=== PATIENT | male | born 1960 | race Two or more races ===

== ENCOUNTER 2022-10-02 15:35 | Emergency (ER) | payer SELFPAY ==
[~2022-10-02] VITALS: Ht 172.7 cm; Wt 74.8 kg
[~2022-10-02 15:35] MED LIST: ACET500 PO; ANTIBIOTIC; CEPH500 PO; HYDR1TAB94 PO; IBU600 M1 PO; IBUP600 PO; ONDA4ODT MM; Percocet 5-3251 EACH PO; TAMS.4ER PO
[2022-10-02 16:51] LABS: BASOPHILS PERCENT AUTO 1 % (0-2); EOSINOPHILS ABSOLUTE AUTO 0.07 K/mm3 (0.00-0.68); EOSINOPHILS PERCENT AUTO 1 % (0-6); Hematocrit 40.8 % (37.0-53.0); Hemoglobin 15.3 g/dL (13.5-17.5); IMMATURE GRAN ABSOLUTE AUTO 0.15 K/mm3 (0.00-0.10); IMMATURE GRAN PERCENT AUTO 2 % (0-1); LYMPHOCYTES ABSOLUTE AUTO 0.49 K/mm3 (0.84-5.20); LYMPHOCYTES PERCENT AUTO 5 % (21-46); MONOCYTES ABSOLUTE AUTO 1.21 K/mm3 (0.16-1.47); MONOCYTES PERCENT AUTO 12 % (4-13); Mean Corpuscular HGB 30.7 pg (26.0-34.0); Mean Corpuscular HGB Conc 37.5 g/dL (31.5-36.5); Mean Corpuscular Volume 82 fL (80-100); Mean Platelet Volume 9.5 fL (9.1-12.4); NEUTROPHILS ABSOLUTE AUTO 7.73 K/mm3 (1.96-9.15); NEUTROPHILS PERCENT AUTO 79 % (41-73); Platelet Count 351 K/mm3 (150-400); RDW Coefficient Variation 12.9 % (11.7-14.2); RDW Standard Deviation 38.4 fL (35.1-46.3); Red Blood Cell Count 4.99 M/mm3 (4.30-5.90); White Blood Cell Count 9.75 K/mm3 (4.00-11.30)
[2022-10-02 16:56] LABS: Influenza B, PCR NEGATIVE (NEGATIVE); Resp Syncytial Virus, PCR NEGATIVE (NEGATIVE); SARS-Cov-2 (COVID-19) PCR, MMC NEGATIVE (NEGATIVE)
[2022-10-02 17:10] LABS: Influenza A, PCR POSITIVE (NEGATIVE)
[2022-10-02 17:11] LABS: Bilirubin, Total 0.5 mg/dL (0.1-1.0); Bun/Creatinine Ratio 11.1 (12.0-20.0); Calcium, Blood 9.1 mg/dL (8.5-10.1); Creatinine, Blood 0.81 mg/dL (0.60-1.20); Globulin, Blood 3.9 g/dL (2.2-4.0); Potassium, Blood 4.3 mmol/L (3.5-5.5); Total Protein, Blood 7.9 g/dL (6.4-8.2)
[2022-10-02] MEDS ORDERED: ONDA4ODT MM (21:49)
[2022-10-02] MEDS ORDERED: ACET500 PO (21:49)
== END 2022-10-02 22:03 | disposition home or self-care (01) ==
LOC: ER 15:35
PROVIDERS: Emergency Medicine
DX: J10.1 Influenza due to other identified influenza virus with other respiratory manifestations (principal); Z79.899 Other long term (current) drug therapy; Z20.822 Contact with and (suspected) exposure to COVID-19
CPT/HCPCS: 0241U; 36415; 80053; 85025; A9270; J1885

== ENCOUNTER 2022-10-03 08:15 | Emergency (ER) | payer SELFPAY ==
[~2022-10-03] VITALS: Ht 177.8 cm; Wt 77.1 kg
== END 2022-10-03 10:38 | disposition home or self-care (01) ==
LOC: ER 08:15
DX: J10.1 Influenza due to other identified influenza virus with other respiratory manifestations (principal); I10 Essential (primary) hypertension; Z87.891 Personal history of nicotine dependence
CPT/HCPCS: 99282

== ENCOUNTER 2024-11-21 09:28 | Emergency (ER) | payer SELFPAY ==
[~2024-11-21] VITALS: Ht 157.5 cm; Wt 81.7 kg
[2024-11-21 10:22] VITALS: BP 154/116
[2024-11-21 10:47] LABS: Source, Urine Straight Cath
[2024-11-21 10:50] LABS: Appearance, Urine Hazy (Clear); Bilirubin, Urine Neg (Neg); Blood, Urine 5+ (Neg); Color, Urine Yellow (P-Yellow); Glucose Qualitative, Urine Neg (Neg); Ketones, Urine Neg (Neg); Leukocyte Esterase, Urine 3+ (Neg); Nitrite, Urine Pos (Neg); Protein, Urine 2+ (Neg); Urobilinogen, Urine NORM (Normal)
[2024-11-21 11:00] LABS: Bacteria Mod /hpf; Red Blood Cells, Urine 50-100 /hpf (0-2); Squamous Epithelial Cells Not Seen /hpf (Few); White Blood Cells, Urine 50-100 /hpf (0-5)
[2024-11-21] MEDS ORDERED: Cephalexin Monohydrate 500 MG Cap PO ONE (11:40)
[2024-11-21] MEDS ORDERED: Tamsulosin HCl 0.4 MG Cap PO ONE (11:45)
[2024-11-21] MEDS ORDERED: CEPH500 PO (11:50)
== END 2024-11-21 11:54 | disposition home or self-care (01) ==
LOC: ER 09:28
PROVIDERS: Student in an Organized Health Care Education/Training Program
DX: N39.0 Urinary tract infection, site not specified (principal); Z79.899 Other long term (current) drug therapy
CPT/HCPCS: 51701; 51798; 81001; 87077; 87086; 87186; 99284-25; A9270

== ENCOUNTER 2024-11-29 02:46 | Emergency (ER) | payer SELFPAY ==
[~2024-11-29] VITALS: Ht 172.7 cm; Wt 79.4 kg
[2024-11-29 02:55] VITALS: BP 130/90
[2024-11-29 03:41] LABS: Source, Urine Clean Catch
[2024-11-29 03:48] LABS: Bilirubin, Urine Neg (Neg); Blood, Urine Neg (Neg); Glucose Qualitative, Urine Neg (Neg); Ketones, Urine Neg (Neg); Leukocyte Esterase, Urine 2+ (Neg); Nitrite, Urine Neg (Neg); Protein, Urine Neg (Neg); Urobilinogen, Urine NORM (Normal)
[2024-11-29 03:54] LABS: Appearance, Urine Clear (Clear); Color, Urine Yellow (P-Yellow)
[2024-11-29 03:55] LABS: Bacteria Mod /hpf; Red Blood Cells, Urine Not Seen /hpf (0-2); Squamous Epithelial Cells Not Seen /hpf (Few)
[2024-11-29 04:16] LABS: Albumin, Blood 3.8 g/dL (3.4-5.0); Albumin/Globulin Ratio 1.1 (0.8-1.8); Bilirubin, Total 0.3 mg/dL (0.1-1.0); Bun/Creatinine Ratio 17.3 (12.0-20.0); Calcium, Blood 9.2 mg/dL (8.5-10.1); Creatinine, Blood 0.75 mg/dL (0.60-1.20); Globulin, Blood 3.5 g/dL (2.2-4.0); Total Protein, Blood 7.3 g/dL (6.4-8.2)
[2024-11-29 04:55] LABS: BASOPHILS PERCENT AUTO 1 % (0-2); EOSINOPHILS PERCENT AUTO 1 % (0-6); Hematocrit 38.3 % (37.0-53.0); IMMATURE GRAN ABSOLUTE AUTO 0.05 K/mm3 (0.00-0.10); IMMATURE GRAN PERCENT AUTO 1 % (0-1); LYMPHOCYTES PERCENT AUTO 29 % (21-46); MONOCYTES ABSOLUTE AUTO 0.57 K/mm3 (0.16-1.47); MONOCYTES PERCENT AUTO 8 % (4-13); Mean Corpuscular Volume 82 fL (80-100); Mean Platelet Volume 10.5 fL (9.1-12.4); NEUTROPHILS ABSOLUTE AUTO 4.19 K/mm3 (1.96-9.15); NEUTROPHILS PERCENT AUTO 60 % (41-73); Platelet Count 331 K/mm3 (150-400); RDW Coefficient Variation 13.2 % (11.7-14.2); RDW Standard Deviation 39.2 fL (35.1-46.3); White Blood Cell Count 7.01 K/mm3 (4.00-11.30)
[2024-11-29 04:58] LABS: Hemoglobin 14.4 g/dL (13.5-17.5); Mean Corpuscular HGB 30.6 pg (26.0-34.0); Mean Corpuscular HGB Conc 37.6 g/dL (31.5-36.5)
[2024-12-03] MEDS ORDERED: CEFP200 PO (09:21)
[2024-12-12] MEDS ORDERED: TAMS.4ER PO (06:22)
== END 2024-11-29 05:38 | disposition home or self-care (01) ==
LOC: ER 02:46
PROVIDERS: Student in an Organized Health Care Education/Training Program
DX: R33.9 Retention of urine, unspecified (principal); Z87.438 Personal history of other diseases of male genital organs
CPT/HCPCS: 51702; 51798; 80053; 81001; 85025; 87077; 87086; 87186; 99283-25

== ENCOUNTER 2024-12-02 03:45 | Emergency (ER) | payer SELFPAY ==
[~2024-12-02] VITALS: Ht 162.6 cm; Wt 75.0 kg
[2024-12-02 04:26] VITALS: BP 132/67
[2024-12-03] MEDS ORDERED: CEFP200 PO (09:21)
== END 2024-12-02 04:38 | disposition home or self-care (01) ==
LOC: ER 03:45
DX: Z46.6 Encounter for fitting and adjustment of urinary device (principal)
CPT/HCPCS: 99283

== ENCOUNTER 2024-12-08 05:14 | Emergency (ER) | payer SELFPAY ==
[~2024-12-08] VITALS: Ht 167.6 cm; Wt 83.9 kg
[~2024-12-08 05:14] MED LIST changes: +CEFP200 PO
[2024-12-08] MEDS ORDERED: Trimethoprim/Sulfamethoxazole DS Tab PO ONE (06:30)
[2024-12-08] MEDS ORDERED: SULTRIDS PO (06:34)
[2024-12-08 06:47] LABS: Source, Urine Clean Catch
[2024-12-08 06:55] LABS: Appearance, Urine Clear (Clear); Bilirubin, Urine Neg (Neg); Blood, Urine 2+ (Neg); Color, Urine Yellow (P-Yellow); Glucose Qualitative, Urine Neg (Neg); Ketones, Urine Neg (Neg); Leukocyte Esterase, Urine Neg (Neg); Nitrite, Urine Neg (Neg); Protein, Urine Neg (Neg); Specific Gravity, Urine 1.015 (1.003-1.022); Urobilinogen, Urine NORM (Normal)
[2024-12-08 07:12] LABS: Bacteria Not Seen /hpf; Squamous Epithelial Cells Rare /hpf (Few); White Blood Cells, Urine 0-2 /hpf (0-5)
[2024-12-08 07:29] VITALS: BP 132/75
[2024-12-12] MEDS ORDERED: TAMS.4ER PO (06:22)
== END 2024-12-08 07:29 | disposition home or self-care (01) ==
LOC: ER 05:14
PROVIDERS: Student in an Organized Health Care Education/Training Program
DX: N39.0 Urinary tract infection, site not specified (principal); B96.4 Proteus (mirabilis) (morganii) as the cause of diseases classified elsewhere; Z16.19 Resistance to other specified beta lactam antibiotics; Z16.29 Resistance to other single specified antibiotic; Z16.11 Resistance to penicillins; R33.9 Retention of urine, unspecified
CPT/HCPCS: 51702; 51798; 81001; 99283-25; A9270

== ENCOUNTER → 2024-12-12 | Emergency (ER) | payer SELFPAY ==
[~2024-12-12] VITALS: Ht 167.6 cm; Wt 81.7 kg
[~2024-12-12] MED LIST changes: +SULTRIDS PO
[2024-12-12 06:06] VITALS: BP 148/81
== END ==
LOC: ER 05:54
DX: Z46.6 Encounter for fitting and adjustment of urinary device (principal); Z87.438 Personal history of other diseases of male genital organs
CPT/HCPCS: 99282

== ENCOUNTER 2025-01-27 04:35 | Emergency (ER) | payer SELFPAY ==
[~2025-01-27] VITALS: Ht 167.6 cm; Wt 77.1 kg
[2025-01-27 04:47] VITALS: BP 152/87
[2025-01-27 05:11] LABS: Source, Urine Foley catheter
[2025-01-27 05:19] LABS: Appearance, Urine Clear (Clear); Bilirubin, Urine Neg (Neg); Blood, Urine 1+ (Neg); Color, Urine Yellow (P-Yellow); Glucose Qualitative, Urine Neg (Neg); Ketones, Urine Neg (Neg); Leukocyte Esterase, Urine 3+ (Neg); Nitrite, Urine Neg (Neg); Protein, Urine Neg (Neg); Urobilinogen, Urine NORM (Normal); pH, Urine 6.5 (5.0-8.0)
[2025-01-27 05:41] LABS: Bacteria Few /hpf; Red Blood Cells, Urine 0-2 /hpf (0-2); Squamous Epithelial Cells Not Seen /hpf (Few)
[2025-01-27] MEDS ORDERED: CEPH500 PO (06:28)
[2025-01-27] MEDS ORDERED: TAMS.4ER PO (06:28)
== END 2025-01-27 06:44 | disposition home or self-care (01) ==
LOC: ER 04:35
PROVIDERS: Emergency Medicine
DX: T83.091A Other mechanical complication of indwelling urethral catheter, initial encounter (principal); R33.9 Retention of urine, unspecified; N39.0 Urinary tract infection, site not specified; Z79.2 Long term (current) use of antibiotics; Z79.899 Other long term (current) drug therapy
CPT/HCPCS: 51702; 51798; 81001; 87077; 87086; 87186; 99283-25

== ENCOUNTER 2025-02-01 03:38 | Emergency (ER) | payer SELFPAY ==
[~2025-02-01] VITALS: Ht 160 cm; Wt 72.6 kg
== END 2025-02-01 04:16 | disposition home or self-care (01) ==
LOC: ER 03:38
DX: Z46.6 Encounter for fitting and adjustment of urinary device (principal); N40.1 Benign prostatic hyperplasia with lower urinary tract symptoms; R33.8 Other retention of urine
CPT/HCPCS: 99282

== ENCOUNTER 2025-03-01 00:50 | Emergency (ER) | payer SELFPAY ==
[~2025-03-01] VITALS: Ht 177.8 cm; Wt 73.5 kg
[2025-03-01 02:02] VITALS: BP 137/109
[2025-03-01] MEDS ORDERED: Lidocaine 2% Jelly Uro-Jet UR ONE (02:05)
[2025-03-01 03:10] LABS: Source, Urine Foley catheter
[2025-03-01 03:12] LABS: Bilirubin, Urine Neg (Neg); Blood, Urine 3+ (Neg); Glucose Qualitative, Urine Neg (Neg); Ketones, Urine Neg (Neg); Leukocyte Esterase, Urine 3+ (Neg); Nitrite, Urine Neg (Neg); Protein, Urine Neg (Neg); Urobilinogen, Urine NORM (Normal)
[2025-03-01 03:29] LABS: Appearance, Urine Clear (Clear); Color, Urine Pale Yellow (P-Yellow); Red Blood Cells, Urine 0-2 /hpf (0-2)
[2025-03-01 03:30] LABS: Bacteria Few /hpf; Squamous Epithelial Cells Not Seen /hpf (Few)
[2025-03-01] MEDS ORDERED: Cefuroxime Axetil 250 MG Tab PO ONE (03:55)
[2025-03-01] MEDS ORDERED: CEFUROXIME SOD1.5 GM PO (03:57)
== END 2025-03-01 04:30 | disposition home or self-care (01) ==
LOC: ER 00:50
PROVIDERS: Emergency Medicine
DX: N39.0 Urinary tract infection, site not specified (principal); N40.1 Benign prostatic hyperplasia with lower urinary tract symptoms; R33.8 Other retention of urine; Z79.899 Other long term (current) drug therapy
CPT/HCPCS: 51702; 51798; 81001; 87077; 87086; 87186; 99283-25; A9270

== ENCOUNTER 2025-03-10 02:23 | Emergency (ER) | payer SELFPAY ==
[~2025-03-10] VITALS: Ht 167.6 cm; Wt 65.8 kg
[~2025-03-10 02:23] MED LIST changes: +CEFUROXIME SOD1.5 GM PO
[2025-03-10 04:24] VITALS: BP 144/81
== END 2025-03-10 04:25 | disposition home or self-care (01) ==
LOC: ER 02:23
DX: Z46.6 Encounter for fitting and adjustment of urinary device (principal); Z79.899 Other long term (current) drug therapy
CPT/HCPCS: 51798; 99283-25

== ENCOUNTER 2025-05-17 03:10 | Emergency (ER) | payer SELFPAY ==
[~2025-05-17] VITALS: Ht 167.6 cm; Wt 67.1 kg
[2025-05-17] MEDS ORDERED: Lidocaine 2% Jelly Uro-Jet UR ONE (03:55)
[2025-05-17 04:09] VITALS: BP 142/80
[2025-05-17 04:40] LABS: Source, Urine Foley catheter
[2025-05-17 04:47] LABS: Bilirubin, Urine Neg (Neg); Glucose Qualitative, Urine Neg (Neg); Ketones, Urine Neg (Neg); Leukocyte Esterase, Urine 3+ (Neg); Protein, Urine 2+ (Neg); Specific Gravity, Urine 1.005 (1.003-1.022); Urobilinogen, Urine NORM (Normal)
[2025-05-17 04:53] LABS: Color, Urine Red (P-Yellow)
[2025-05-17 04:54] LABS: Red Blood Cells, Urine TNTC /hpf (0-2)
[2025-05-17] MEDS ORDERED: CEPH500 PO (06:05)
== END 2025-05-17 06:18 | disposition home or self-care (01) ==
LOC: ER 03:10
PROVIDERS: Emergency Medicine
DX: N40.1 Benign prostatic hyperplasia with lower urinary tract symptoms (principal); R33.8 Other retention of urine; N39.0 Urinary tract infection, site not specified; Z79.899 Other long term (current) drug therapy
CPT/HCPCS: 51702; 81001; 87077; 87086; 87186; 99283

== ENCOUNTER 2025-05-23 21:13 | Emergency (ER) | payer SELFPAY ==
[~2025-05-23] VITALS: Ht 165.1 cm; Wt 77.1 kg
[2025-05-23 21:24] VITALS: BP 153/93
[2025-05-23] MEDS ORDERED: Flomax0.4 MG PO (21:45)
[2025-05-23] MEDS ORDERED: Miralax17 GM PO (21:45)
== END 2025-05-23 21:58 | disposition home or self-care (01) ==
LOC: ER 21:13
DX: Z46.6 Encounter for fitting and adjustment of urinary device (principal); R33.9 Retention of urine, unspecified; Z79.899 Other long term (current) drug therapy
CPT/HCPCS: 99283

== ENCOUNTER 2025-05-24 03:15 | Emergency (ER) | payer SELFPAY ==
[~2025-05-24] VITALS: Ht 162.6 cm; Wt 70.0 kg
[~2025-05-24 03:15] MED LIST changes: +Flomax0.4 MG PO; +Miralax17 GM PO
[2025-05-24 03:28] VITALS: BP 140/76
[2025-05-24] MEDS ORDERED: Lidocaine 2% Jelly Uro-Jet UR ONE (03:40)
== END 2025-05-24 04:20 | disposition home or self-care (01) ==
LOC: ER 03:15
DX: R33.9 Retention of urine, unspecified (principal)
CPT/HCPCS: 51702; 51798; 99283-25

== ENCOUNTER 2025-05-26 21:32 | Emergency (ER) | payer SELFPAY ==
[~2025-05-26] VITALS: Ht 162.6 cm; Wt 72.6 kg
[2025-05-26 21:42] VITALS: BP 145/81
== END 2025-05-27 00:35 | disposition home or self-care (01) ==
LOC: ER 21:32
DX: Z46.6 Encounter for fitting and adjustment of urinary device (principal); N39.0 Urinary tract infection, site not specified; Z79.2 Long term (current) use of antibiotics; Z79.899 Other long term (current) drug therapy
CPT/HCPCS: 99283

== ENCOUNTER 2025-05-27 03:22 | Emergency (ER) | payer SELFPAY ==
[~2025-05-27] VITALS: Ht 170.2 cm; Wt 67.0 kg
[2025-05-27 03:34] VITALS: BP 164/89
== END 2025-05-27 03:54 | disposition home or self-care (01) ==
LOC: ER 03:22
DX: R33.9 Retention of urine, unspecified (principal)
CPT/HCPCS: 51702

== ENCOUNTER 2025-06-26 02:27 | Emergency (ER) | payer SELFPAY ==
[~2025-06-26] VITALS: Ht 167.6 cm; Wt 71.7 kg
[2025-06-26 03:30] VITALS: BP 155/84
[2025-06-26] MEDS ORDERED: Lidocaine 2% Jelly Uro-Jet UR ONE (03:40)
== END 2025-06-26 05:13 | disposition home or self-care (01) ==
LOC: ER 02:27
DX: R33.9 Retention of urine, unspecified (principal); Z79.899 Other long term (current) drug therapy
CPT/HCPCS: 51702; 99282-25

== ENCOUNTER 2025-07-04 08:10 | Emergency (ER) | payer SELFPAY ==
[~2025-07-04] VITALS: Ht 157.5 cm; Wt 63.5 kg
[2025-07-04 08:40] VITALS: BP 137/86
== END 2025-07-04 09:04 | disposition home or self-care (01) ==
LOC: ER 08:10
DX: R33.9 Retention of urine, unspecified (principal); Z46.6 Encounter for fitting and adjustment of urinary device
CPT/HCPCS: 99283